=== PATIENT | male | born 1935 | race Caucasian/White ===

== ENCOUNTER 2017-03-23 14:50 | Emergency (ER) | payer OTHER, MEDICAID ==
[~2017-03-23] VITALS: Ht 167.6 cm; Wt 69.4 kg
[2017-03-23 14:59] VITALS: BP_SYST 114
[2017-03-23 15:54] LABS: BASOPHILS # (AUTO) 0.1 K/uL (0.0-0.2); BASOPHILS % (AUTO) 0.6 % (0.0-2.0); EOSINOPHILS % (AUTO) 0.5 % (0.0-4.0); HEMATOCRIT 40.6 % (36-54); HEMOGLOBIN 13.5 g/dL (14.0-18.0); LYMPHOCYTES # (AUTO) 1.7 K/uL (1.0-5.5); LYMPHOCYTES % (AUTO) 19.7 % (20.5-51.5); MEAN CORPUSCULAR HEMOGLOBIN 33 pg (27-31); MEAN CORPUSCULAR HGB CONC 33 % (32-36); MEAN CORPUSCULAR VOLUME 100 fL (79.0-98.0); MONOCYTES # (AUTO) 0.6 K/uL (0.0-1.0); MONOCYTES % (AUTO) 6.6 % (1.7-9.3); NEUTROPHILS % (AUTO) 72.6 % (40.0-70.0); RED BLOOD CELL COUNT(AUTO) 4.08 MIL/uL (4.2-6.2); RED CELL DISTRIBUTION WIDTH 14.6 % (9.0-15.0); WHITE BLOOD COUNT (AUTO) 8.4 K/uL (4.8-10.8)
--- NOTE | 2017-03-23 15:58 | NUR ---
Ambulatory to hallway bed 1
[2017-03-23 16:05] LABS: PLATELET COUNT (AUTO) 118 K/uL (130-430)
[2017-03-23 16:08] LABS: PROTHROMBIN TIME 9.7 SECS (9.5-12.5)
--- NOTE | 2017-03-23 16:10 | NUR ---
Pt complains of left lower back pain for the past couple weeks, pt states has increased for the past couple days. Pt is able to ambulate but is hunched over and needs assistance. No other injuries/complaints per pt or noted.
--- NOTE | 2017-03-23 16:15 | NUR ---
ER at bedside examining patient.
[2017-03-23] MEDS: KETOROLAC TROMETHAMINE 60 MG/2 ML VIAL IM ONE (16:20)
[2017-03-23] MEDS: ACETAMINOPHEN 325 MG TABLET PO ONE (16:20)
--- NOTE | 2017-03-23 16:20 | NUR ---
Pain medication was given to pt, tolerated it well. No noted adverse reaction, will continue to monitor.
[2017-03-23 16:21] LABS: ANION GAP 5 (5-15); CALCIUM 9.5 mg/dL (8.4-11.0); CHLORIDE 100 mmol/L (98-107); CREATININE 5.51 mg/dL (0.55-1.30); GLUCOSE 112 mg/dL (70-99); POTASSIUM 3.8 mmol/L (3.5-5.1); SODIUM SERUM 139 mmol/L (136-145); UREA NITROGEN, BLOOD 25 mg/dL (8-21)
[2017-03-23 16:25] LABS: ALBUMIN 3.5 g/dL (3.4-4.8); ASPARTATE AMINOTRANSFERASE 17 U/L (10-37); LIPASE 138 U/L (73-393); TOTAL BILIRUBIN 0.4 mg/dL (0.0-1.0)
[2017-03-23 16:40] LABS: ALANINE AMINOTRANSFERASE 24 U/L (12-78)
[2017-03-23 17:12] VITALS: BP_SYST 110
--- NOTE | 2017-03-23 17:12 | NUR ---
Patient given written and verbal discharge instructions and verbalizes understanding. ER MD discussed with patient the results and treatment provided. Patient in stable condition. ID arm band removed. IV catheter removed intact and dressing applied, no active bleeding. Rx of cipro, tylenol and flagyl given. Patient educated on pain management and to follow up with PMD. Pain Scale 2. Opportunity for questions provided and answered.
== END 2017-03-23 17:12 | disposition home or self-care (01) ==
LOC: SED 14:50
DX: K57.92 Diverticulitis of intestine, part unspecified, without perforation or abscess without bleeding (principal); N40.0 Benign prostatic hyperplasia without lower urinary tract symptoms; I12.0 Hypertensive chronic kidney disease with stage 5 chronic kidney disease or end stage renal disease; N18.6 End stage renal disease; Z99.2 Dependence on renal dialysis; Z87.442 Personal history of urinary calculi
CPT/HCPCS: 36415; 74176; 80053; 83690; 85025; 85610; 85730; 96372; 99285; J1885

== ENCOUNTER 2017-04-05 06:41 | Inpatient (IN) | payer OTHER, MEDICAID ==
[~2017-04-05] VITALS: Ht 162.6 cm; Wt 68.9 kg
[2017-04-05 06:45] VITALS: BP_SYST 146
[2017-04-05 08:02] LABS: BASOPHILS % (AUTO) 0.1 % (0.0-2.0); EOSINOPHILS % (AUTO) 0.5 % (0.0-4.0); HEMATOCRIT 37.3 % (36-54); LYMPHOCYTES # (AUTO) 1.8 K/uL (1.0-5.5); LYMPHOCYTES % (AUTO) 26.9 % (20.5-51.5); MEAN CORPUSCULAR HEMOGLOBIN 32 pg (27-31); MEAN CORPUSCULAR HGB CONC 32 % (32-36); MEAN CORPUSCULAR VOLUME 100 fL (79.0-98.0); MONOCYTES # (AUTO) 0.4 K/uL (0.0-1.0); MONOCYTES % (AUTO) 6.9 % (1.7-9.3); NEUTROPHILS # (AUTO) 4.3 K/uL (1.8-7.7); NEUTROPHILS % (AUTO) 65.6 % (40.0-70.0); PLATELET COUNT (AUTO) 140 K/uL (130-430); RED BLOOD CELL COUNT(AUTO) 3.75 MIL/uL (4.2-6.2); RED CELL DISTRIBUTION WIDTH 14.5 % (9.0-15.0); WHITE BLOOD COUNT (AUTO) 6.5 K/uL (4.8-10.8)
[2017-04-05 08:18] LABS: PROTHROMBIN TIME 9.8 SECS (9.5-12.5)
[2017-04-05 08:20] LABS: ALANINE AMINOTRANSFERASE 29 U/L (12-78); ALBUMIN 2.8 g/dL (3.4-4.8); ANION GAP 8 (5-15); ASPARTATE AMINOTRANSFERASE 25 U/L (10-37); CALCIUM 8.8 mg/dL (8.4-11.0); CHLORIDE 100 mmol/L (98-107); CREATININE 6.62 mg/dL (0.55-1.30); GLUCOSE 77 mg/dL (70-99); POTASSIUM 4.4 mmol/L (3.5-5.1); SODIUM SERUM 139 mmol/L (136-145); TOTAL BILIRUBIN 0.6 mg/dL (0.0-1.0); UREA NITROGEN, BLOOD 41 mg/dL (8-21)
[2017-04-05] MEDS ORDERED: OXYC5TAB84 PO (09:30)
[2017-04-05] MEDS ORDERED: NIFE60TA18 PO (09:30)
[2017-04-05] MEDS ORDERED: SEVE800T10 PO (09:30)
[2017-04-05 10:34] VITALS: BP_SYST 134
[2017-04-05] MEDS ORDERED: IRON (10:55)
[2017-04-05] MEDS ORDERED: PRED5TAB PO (10:55)
[2017-04-05] MEDS ORDERED: PRO40 PO (10:55)
[2017-04-05] MEDS ORDERED: MORPHINE 2 MG/ML INJ. SYRINGE ONE (15:43)
[2017-04-05 16:17] VITALS: BP_SYST 113
[2017-04-05] MEDS ORDERED: PANTOPRAZOLE SODIUM 40 MG/VIAL (PROTONIX) IVP ONE (17:00)
[2017-04-05 17:07] LABS: HEMATOCRIT 36.5 % (36-54); HEMOGLOBIN 12.4 g/dL (14.0-18.0)
[2017-04-05] MEDS ORDERED: GOLYTELY / COLYTE SOLUTION 4 LITERS PO ONE (18:00)
[2017-04-05] MEDS ORDERED: BISACODYL 5 MG TABLET.DR (DULCOLAX) PO ONE (18:00)
[2017-04-05 20:00] VITALS: BP_SYST 112
[2017-04-05] MEDS: PANTOPRAZOLE SODIUM 40 MG/VIAL (PROTONIX) IVP SCH (20:56)
[2017-04-05 23:10] LABS: HEMATOCRIT 39.7 % (36-54); HEMOGLOBIN 13.4 g/dL (14.0-18.0)
[2017-04-06 00:02] VITALS: BP_SYST 100
[2017-04-06 06:17] LABS: HEMATOCRIT 37.6 % (36-54); HEMOGLOBIN 12.6 g/dL (14.0-18.0)
[2017-04-06 08:01] VITALS: BP_SYST 129
[2017-04-06] MEDS ORDERED: SIMETHICONE 40 MG/0.6 ML ML ONE (08:09)
[2017-04-06] MEDS ORDERED: MEPERIDINE HCL/PF 100 MG/ML AMP ONE (08:09)
[2017-04-06] MEDS ORDERED: MIDAZOLAM HCL 5 MG/5 ML VIAL ONE (08:10)
[2017-04-06] MEDS: PANTOPRAZOLE SODIUM 40 MG/VIAL (PROTONIX) IVP SCH ×3 (09:00→20:24)
[2017-04-06] MEDS ORDERED: HYDROCORTISONE ACETATE 1 SUPP (ANUSOL HC) RC ONE (09:45)
[2017-04-06 10:36] LABS: HEMOGLOBIN 13.7 g/dL (14.0-18.0)
[2017-04-06 10:37] LABS: HEMATOCRIT 41.1 % (36-54)
[2017-04-06 12:15] VITALS: BP_SYST 114
[2017-04-06 17:03] VITALS: BP_SYST 126
[2017-04-06 20:00] VITALS: BP_SYST 100
[2017-04-06] MEDS ORDERED: HYDROCORTISONE ACETATE 1 SUPP (ANUSOL HC) RC SCH (21:00)
[2017-04-06 21:02] VITALS: BP_SYST 100
[2017-04-06] MEDS ORDERED: PRO40 PO (21:14)
== END 2017-04-06 21:30 | disposition home or self-care (01) | DRG 377 ==
LOC: SED 06:41 → STU 09:47 → SMU 04-06 14:40
PROVIDERS: ADMIT Internal Medicine Hospice and Palliative Medicine; ATTEND Internal Medicine Hospice and Palliative Medicine
PROC: 0DB68ZX Excision of Stomach, Via Natural or Artificial Opening Endoscopic, Diagnostic (ICD-10-PCS; 2017-04-06)
PROC: 5A1D70Z Performance of Urinary Filtration, Intermittent, Less than 6 Hours Per Day (ICD-10-PCS; 2017-04-06)
PROC: 0DBK8ZZ Excision of Ascending Colon, Via Natural or Artificial Opening Endoscopic (ICD-10-PCS; principal; 2017-04-06 08:30)
PROC: 0DB98ZX Excision of Duodenum, Via Natural or Artificial Opening Endoscopic, Diagnostic (ICD-10-PCS; 2017-04-06 08:30)
DX: K62.5 Hemorrhage of anus and rectum (principal); N18.6 End stage renal disease; I12.0 Hypertensive chronic kidney disease with stage 5 chronic kidney disease or end stage renal disease; K64.9 Unspecified hemorrhoids; K29.71 Gastritis, unspecified, with bleeding; D12.2 Benign neoplasm of ascending colon; K63.5 Polyp of colon; Z99.2 Dependence on renal dialysis; K29.80 Duodenitis without bleeding; K57.90 Diverticulosis of intestine, part unspecified, without perforation or abscess without bleeding
CPT/HCPCS: 36415; 43239; 45380; 80053; 82272; 85018-TC; 85025; 85610-TC; 85730-TC; 86886; 86900; 86901; 87081; 88305; 88312; 88313; 90935; 93005; 99285; C9113; J2175; J2250; J2270; J7030

== ENCOUNTER 2017-08-15 16:56 | Emergency (ER) | payer OTHER, MEDICAID ==
[~2017-08-15] VITALS: Ht 167.6 cm; Wt 67.1 kg
[2017-08-15 16:56] VITALS: BP_SYST 85
[~2017-08-15 16:56] MED LIST: IRON; OXYC5TAB84 PO; PRED5TAB PO; PRO40 PO; SEVE800T10 PO
--- NOTE | 2017-08-15 16:58 | NUR ---
BROUGHT BACK TO BED #8 AND TRIAGED.REPORT GIVEN TO ROBYN
--- NOTE | 2017-08-15 17:05 | NUR ---
Pt presents to ER c/o productive cough x 3 days. Pt states that he recently saw his PMD who prescribed him antibiotics; pt states that he has taken 3 doses of antibiotics but is not feeling better. Pt reports mucus is clear, denies N/V/D/FEVER/SOB/CP. Pt in no acute respiratory distress, AOX4, Vietnamese speaking only, at bedside.
--- NOTE | 2017-08-15 17:10 | NUR ---
ER at bedside examining patient.
[2017-08-15 17:38] LABS: BASOPHILS % (AUTO) 0.5 % (0.0-2.0); EOSINOPHILS % (AUTO) 0.3 % (0.0-4.0); HEMATOCRIT 35.3 % (36-54); HEMOGLOBIN 11.7 g/dL (14.0-18.0); LYMPHOCYTES # (AUTO) 0.9 K/uL (1.0-5.5); LYMPHOCYTES % (AUTO) 11.4 % (20.5-51.5); MEAN CORPUSCULAR HEMOGLOBIN 33 pg (27-31); MEAN CORPUSCULAR HGB CONC 33 % (32-36); MEAN CORPUSCULAR VOLUME 101 fL (79.0-98.0); MONOCYTES # (AUTO) 0.4 K/uL (0.0-1.0); MONOCYTES % (AUTO) 5.1 % (1.7-9.3); NEUTROPHILS # (AUTO) 6.6 K/uL (1.8-7.7); NEUTROPHILS % (AUTO) 82.7 % (40.0-70.0); PLATELET COUNT (AUTO) 129 K/uL (130-430); RED BLOOD CELL COUNT(AUTO) 3.48 MIL/uL (4.2-6.2); RED CELL DISTRIBUTION WIDTH 14.3 % (9.0-15.0); WHITE BLOOD COUNT (AUTO) 7.9 K/uL (4.8-10.8)
[2017-08-15 17:46] LABS: CALCIUM 8.5 mg/dL (8.4-11.0); CHLORIDE 100 mmol/L (98-107); CREATININE 4.56 mg/dL (0.55-1.30); GLUCOSE 102 mg/dL (70-99); SODIUM SERUM 139 mmol/L (136-145); UREA NITROGEN, BLOOD 27 mg/dL (8-21)
[2017-08-15 18:04] LABS: INR 0.9 (0.80-1.20); PROTHROMBIN TIME 9.5 SECS (9.5-12.5)
[2017-08-15 18:18] LABS: ALANINE AMINOTRANSFERASE 33 U/L (12-78); ASPARTATE AMINOTRANSFERASE 25 U/L (10-37); TOTAL BILIRUBIN 0.6 mg/dL (0.0-1.0)
[2017-08-15 18:19] LABS: ALBUMIN 3.2 g/dL (3.4-4.8); ANION GAP < 3 (5-15)
--- NOTE | 2017-08-15 18:20 | NUR ---
Pt resting comfortably on gurney, no signs of acute distress noted, will continue to monitor.
--- NOTE | 2017-08-15 19:10 | NUR ---
Patient to ER C/O of cough and low grade fever. On gurney, calm, VS wnl. No signs of acute distress.
[2017-08-15] MEDS ORDERED: LEVOFLOXACIN 500 MG TABLET PO ONE (19:30)
[2017-08-15 20:03] VITALS: BP_SYST 137
--- NOTE | 2017-08-15 20:03 | NUR ---
Patient given written and verbal discharge instructions and verbalizes understanding. ER MD Gomes discussed with patient the results and treatment provided. Patient in stable condition. ID arm band removed. Rx of levaquin & phenergan given. Patient educated on pain management and to follow up with PMD. Pain Scale 0/10. Opportunity for questions provided and answered. Medication side effect fact sheet provided.
== END 2017-08-15 20:03 | disposition home or self-care (01) ==
LOC: SED 16:56
DX: R05 Cough (principal); R79.1 Abnormal coagulation profile
CPT/HCPCS: 36415; 71045; 80053; 83605; 83880; 84484; 85025; 85610-TC; 85730-TC; 93005; 99285

== ENCOUNTER 2018-03-02 19:18 | Inpatient (IN) | payer OTHER, MEDICAID ==
[~2018-03-02] VITALS: Ht 162.6 cm; Wt 65.8 kg
[~2018-03-02 19:18] MED LIST changes: +OXYC-580 PO; -OXYC5TAB84 PO; +REN800 PO; -SEVE800T10 PO
[2018-03-02 19:39] VITALS: BP_SYST 156
[2018-03-02] MEDS ORDERED: NACL 0.9% 1,000 ML IV ONE (20:00)
[2018-03-02] MEDS ORDERED: MECLIZINE HCL 25 MG TABLET (ANITVERT) PO ONE (20:30)
[2018-03-02 20:34] LABS: BASOPHILS % (AUTO) 0.1 % (0.0-2.0); EOSINOPHILS % (AUTO) 0.2 % (0.0-4.0); HEMATOCRIT 36.5 % (36-54); HEMOGLOBIN 12.1 g/dL (14.0-18.0); LYMPHOCYTES % (AUTO) 15.7 % (20.5-51.5); MEAN CORPUSCULAR HEMOGLOBIN 34 pg (27-31); MEAN CORPUSCULAR HGB CONC 33 % (32-36); MEAN CORPUSCULAR VOLUME 101 fL (79.0-98.0); MONOCYTES # (AUTO) 0.3 K/uL (0.0-1.0); MONOCYTES % (AUTO) 5.1 % (1.7-9.3); NEUTROPHILS # (AUTO) 5.2 K/uL (1.8-7.7); NEUTROPHILS % (AUTO) 78.9 % (40.0-70.0); RED BLOOD CELL COUNT(AUTO) 3.63 MIL/uL (4.2-6.2); RED CELL DISTRIBUTION WIDTH 13.3 % (9.0-15.0); WHITE BLOOD COUNT (AUTO) 6.5 K/uL (4.8-10.8)
[2018-03-02 20:37] LABS: PLATELET COUNT (AUTO) 101 K/uL (130-430)
[2018-03-02 20:48] LABS: ANION GAP 10 (5-15); CALCIUM 9.2 mg/dL (8.4-11.0); CHLORIDE 97 mmol/L (98-107); CREATININE 6.86 mg/dL (0.55-1.30); GLUCOSE 79 mg/dL (70-99); POTASSIUM 5.7 mmol/L (3.5-5.1); SODIUM SERUM 135 mmol/L (136-145); UREA NITROGEN, BLOOD 42 mg/dL (8-21)
[2018-03-02 20:51] LABS: PROTHROMBIN TIME 9.9 SECS (9.5-12.5)
[2018-03-02 20:53] LABS: ALANINE AMINOTRANSFERASE 30 U/L (12-78); ALBUMIN 3.2 g/dL (3.4-4.8); ASPARTATE AMINOTRANSFERASE 29 U/L (10-37); TOTAL BILIRUBIN 0.5 mg/dL (0.0-1.0)
[2018-03-02] MEDS ORDERED: INSULIN NPH/REGULAR 70-30, 100 UNITS/ML, 10 ML VIAL SUBCUT ONE (21:30)
[2018-03-02] MEDS ORDERED: DEXTROSE 50% JECT 50 ML DISP.SYRIN IVP ONE (21:30)
[2018-03-02] MEDS ORDERED: SODIUM POLYSTYRENE SULFONATE 15 GM/60 ML UDBTL PO ONE (21:30)
[2018-03-02] MEDS ORDERED: CINA60TA PO (21:54)
[2018-03-02] MEDS ORDERED: REN800 PO (21:54)
[2018-03-03] VITALS (9 sets, daily range): BP systolic 118–132
[2018-03-03] MEDS ORDERED: ONDANSETRON HCL 4 MG/2 ML VIAL IVP PRN
[2018-03-03] MEDS ORDERED: oxyCODONE HCL 5 MG TABLET PO PRN
[2018-03-03 07:21] LABS: LYMPHOCYTES # (AUTO) 1.3 K/uL (1.0-5.5); MEAN CORPUSCULAR HGB CONC 34 % (32-36); MEAN CORPUSCULAR VOLUME 101 fL (79.0-98.0); WHITE BLOOD COUNT (AUTO) 5.7 K/uL (4.8-10.8)
[2018-03-03 07:28] LABS: ANION GAP 8 (5-15); CALCIUM 8.5 mg/dL (8.4-11.0); CHLORIDE 102 mmol/L (98-107); CREATININE 7.29 mg/dL (0.55-1.30); GLUCOSE 96 mg/dL (70-99); POTASSIUM 4.4 mmol/L (3.5-5.1); SODIUM SERUM 140 mmol/L (136-145); UREA NITROGEN, BLOOD 47 mg/dL (8-21)
[2018-03-03 07:33] LABS: RED BLOOD CELL COUNT(AUTO) 3.09 MIL/uL (4.2-6.2)
[2018-03-03 07:34] LABS: EOSINOPHILS % (AUTO) 0.5 % (0.0-4.0); HEMATOCRIT 31.2 % (36-54); LYMPHOCYTES % (AUTO) 23.3 % (20.5-51.5); MEAN CORPUSCULAR HEMOGLOBIN 35 pg (27-31); MONOCYTES # (AUTO) 0.6 K/uL (0.0-1.0); MONOCYTES % (AUTO) 9.7 % (1.7-9.3); NEUTROPHILS # (AUTO) 3.8 K/uL (1.8-7.7); NEUTROPHILS % (AUTO) 66.5 % (40.0-70.0); RED CELL DISTRIBUTION WIDTH 13.2 % (9.0-15.0)
[2018-03-03 07:35] LABS: HEMOGLOBIN 10.7 g/dL (14.0-18.0)
[2018-03-03 07:46] LABS: ALANINE AMINOTRANSFERASE 22 U/L (12-78); ALBUMIN 2.4 g/dL (3.4-4.8); ASPARTATE AMINOTRANSFERASE 21 U/L (10-37); TOTAL BILIRUBIN 0.4 mg/dL (0.0-1.0)
[2018-03-03] MEDS: PANTOPRAZOLE SODIUM 40 MG TAB PO SCH ×2 (08:11→20:53)
[2018-03-03] MEDS: PREDNISONE 5 MG TABLET PO SCH (08:11)
[2018-03-03] MEDS: SEVELAMER HCL 800 MG TABLET PO SCH (08:11)
[2018-03-03] MEDS: CINACALCET HCL 30 MG TABLET PO SCH (08:11)
[2018-03-03] MEDS ORDERED: DEXTROSE 50% JECT 50 ML DISP.SYRIN IVP PRN (09:45)
[2018-03-03 09:54] LABS: PLATELET COUNT (AUTO) 82 K/uL (130-430)
[2018-03-03] MEDS: INSULIN REGULAR, HUMAN 100 UNITS/ML, 10 ML VIAL (novoLIN R) SUBCUT PRN ×2 (11:28→17:12)
[2018-03-04 01:41] VITALS: BP_SYST 131
[2018-03-04 04:17] VITALS: BP_SYST 140
[2018-03-04] MEDS ORDERED: ACETAMINOPHEN 325 MG TABLET PO ONE (04:45)
[2018-03-04] MEDS: INSULIN REGULAR, HUMAN 100 UNITS/ML, 10 ML VIAL (novoLIN R) SUBCUT PRN (05:38)
[2018-03-04] MEDS: CINACALCET HCL 30 MG TABLET PO SCH (08:35)
[2018-03-04] MEDS: PREDNISONE 5 MG TABLET PO SCH (08:35)
[2018-03-04] MEDS: PANTOPRAZOLE SODIUM 40 MG TAB PO SCH (08:35)
[2018-03-04] MEDS: SEVELAMER HCL 800 MG TABLET PO SCH (08:35)
[2018-03-04 08:39] VITALS: BP_SYST 137
[2018-03-04 11:29] VITALS: BP_SYST 132
[2018-03-04 12:23] VITALS: BP_SYST 132
== END 2018-03-04 13:45 | disposition home or self-care (01) | DRG 640 ==
LOC: SED 19:18 → STU 21:50 → SMU 03-03 09:23 → STU 03-03 09:43
PROVIDERS: ADMIT Internal Medicine; ATTEND Internal Medicine
PROC: 5A1D70Z Performance of Urinary Filtration, Intermittent, Less than 6 Hours Per Day (ICD-10-PCS; principal; 2018-03-04)
DX: E87.5 Hyperkalemia (principal); N18.6 End stage renal disease; I12.0 Hypertensive chronic kidney disease with stage 5 chronic kidney disease or end stage renal disease; D64.9 Anemia, unspecified; E86.9 Volume depletion, unspecified; N40.0 Benign prostatic hyperplasia without lower urinary tract symptoms; E11.22 Type 2 diabetes mellitus with diabetic chronic kidney disease; Z87.442 Personal history of urinary calculi; Z99.2 Dependence on renal dialysis; Z82.49 Family history of ischemic heart disease and other diseases of the circulatory system
CPT/HCPCS: 36415; 70450-TC; 71045; 80053; 82962; 83605; 83880; 84443-TC; 84484; 85025; 85610-TC; 85730-TC; 87040-TC; 87081; 90935; 93005; 93306; 94760; 96361; 96372; 96374; 99285; G0378; J1815; J7512; J8597

== ENCOUNTER 2018-06-01 14:06 | Emergency (ER) | payer OTHER, MEDICAID ==
[~2018-06-01] VITALS: Ht 162.6 cm; Wt 67.1 kg
[~2018-06-01 14:06] MED LIST changes: +CINA60TA PO
[2018-06-01 14:17] VITALS: BP_SYST 161
[2018-06-01] MEDS ORDERED: DIPH-TET-PERTUS Vaccine 0.5 ML VIAL (ADACEL) I.M. ONE (16:45)
[2018-06-01 16:50] VITALS: BP_SYST 140
== END 2018-06-01 16:50 | disposition home or self-care (01) ==
LOC: SED 14:06
DX: S50.812A Abrasion of left forearm, initial encounter (principal); S50.811A Abrasion of right forearm, initial encounter; I12.9 Hypertensive chronic kidney disease with stage 1 through stage 4 chronic kidney disease, or unspecified chronic kidney disease; N18.9 Chronic kidney disease, unspecified; N40.0 Benign prostatic hyperplasia without lower urinary tract symptoms; Z99.2 Dependence on renal dialysis; Z87.442 Personal history of urinary calculi; Z79.899 Other long term (current) drug therapy; W19.XXXA Unspecified fall, initial encounter; Y93.89 Activity, other specified; Y92.89 Other specified places as the place of occurrence of the external cause; Y99.8 Other external cause status
CPT/HCPCS: 90715; 99283

== ENCOUNTER 2018-07-03 15:01 | Inpatient (IN) | payer OTHER, MEDICAID ==
[~2018-07-03] VITALS: Ht 162.6 cm; Wt 73.9 kg
[2018-07-03 15:01] VITALS: BP_SYST 151
[2018-07-03] MEDS ORDERED: NACL 0.9% 1,000 ML IV ONE (15:30)
[2018-07-03 15:56] LABS: BASOPHILS % (AUTO) 0.5 % (0.0-2.0); EOSINOPHILS % (AUTO) 0.2 % (0.0-4.0); HEMATOCRIT 40.5 % (36-54); HEMOGLOBIN 13.5 g/dL (14.0-18.0); LYMPHOCYTES # (AUTO) 0.6 K/uL (1.0-5.5); LYMPHOCYTES % (AUTO) 7.3 % (20.5-51.5); MEAN CORPUSCULAR HEMOGLOBIN 33 pg (27-31); MEAN CORPUSCULAR HGB CONC 33 % (32-36); MEAN CORPUSCULAR VOLUME 100 fL (79.0-98.0); MONOCYTES # (AUTO) 0.4 K/uL (0.0-1.0); NEUTROPHILS # (AUTO) 7.5 K/uL (1.8-7.7); PLATELET COUNT (AUTO) 112 K/uL (130-430); RED BLOOD CELL COUNT(AUTO) 4.07 MIL/uL (4.2-6.2); RED CELL DISTRIBUTION WIDTH 13.8 % (9.0-15.0); WHITE BLOOD COUNT (AUTO) 8.6 K/uL (4.8-10.8)
[2018-07-03 16:13] LABS: ANION GAP 5 (5-15); CALCIUM 9.3 mg/dL (8.4-11.0); CHLORIDE 99 mmol/L (98-107); CREATININE 4.68 mg/dL (0.55-1.30); GLUCOSE 79 mg/dL (70-99); POTASSIUM 3.9 mmol/L (3.5-5.1); SODIUM SERUM 137 mmol/L (136-145); UREA NITROGEN, BLOOD 35 mg/dL (8-21)
[2018-07-03 16:14] LABS: INR 0.9 (0.80-1.20); PROTHROMBIN TIME 9.6 SECS (9.5-12.5)
[2018-07-03 16:18] LABS: ALANINE AMINOTRANSFERASE 15 U/L (12-78); ALBUMIN 3.2 g/dL (3.4-4.8); ASPARTATE AMINOTRANSFERASE 13 U/L (10-37); TOTAL BILIRUBIN 0.6 mg/dL (0.0-1.0)
[2018-07-03] MEDS ORDERED: CLINDAMYCIN 900 mg/50mL D5W 50 ML IV ONE (16:30)
[2018-07-03] MEDS ORDERED: VANCOMYCIN HCL 1,000 MG in NS 250 ML IV ONE (18:00)
[2018-07-03 18:08] VITALS: BP_SYST 102
[2018-07-03 19:00] VITALS: BP_SYST 108
[2018-07-03 20:00] VITALS: BP_SYST 108
[2018-07-03] MEDS ORDERED: VANCOMYCIN HCL 1000 MG/VIAL IV ONE (20:19)
[2018-07-03] MEDS ORDERED: ACETAMINOPHEN 325 MG TABLET PO PRN ×2 (22:00→23:30)
[2018-07-03] MEDS: CINACALCET HCL 30 MG TABLET PO SCH (22:39)
[2018-07-03] MEDS: SEVELAMER HCL 800 MG TABLET PO SCH (22:39)
[2018-07-03] MEDS: PREDNISONE 5 MG TABLET PO SCH (22:39)
[2018-07-03] MEDS ORDERED: COMMUNICATION ORDER XX ONE (22:45)
[2018-07-03] MEDS: ZOLPIDEM TARTRATE 5 MG TABLET PO PRN (22:54)
[2018-07-03] MEDS ORDERED: PIPERACILLIN/TAZOBACTAM 2.25 GM VIAL IV ONE (23:13)
[2018-07-03] MEDS ORDERED: oxyCODONE HCL 5 MG TABLET PO PRN (23:15)
[2018-07-03] MEDS ORDERED: PIPERACILLIN/TAZO 3.375/DEX-IS 50 ML IV SCH (23:30)
[2018-07-03] MEDS ORDERED: ONDANSETRON HCL 4 MG/2 ML VIAL IVP PRN (23:30)
[2018-07-03] MEDS ORDERED: ALBUTEROL SULFATE 0.083% 2.5 MG/3 ML VIAL.NEB INH PRN (23:30)
[2018-07-03] MEDS: oxyCODONE HCL 5 MG TABLET PO PRN (23:52)
[2018-07-03] MEDS: ZOSYN (PIPERACILLIN/TAZO) 2.25 GM in DEX-ISO (50ml) IV SCH (23:57)
[2018-07-04 00:51] VITALS: BP_SYST 100
[2018-07-04] MEDS: ZOSYN (PIPERACILLIN/TAZO) 2.25 GM in DEX-ISO (50ml) IV SCH ×3 (05:17→21:21)
[2018-07-04 06:31] LABS: BASOPHILS % (AUTO) 0.2 % (0.0-2.0); HEMATOCRIT 35.4 % (36-54); HEMOGLOBIN 11.9 g/dL (14.0-18.0); LYMPHOCYTES # (AUTO) 1.3 K/uL (1.0-5.5); LYMPHOCYTES % (AUTO) 13.3 % (20.5-51.5); MEAN CORPUSCULAR HEMOGLOBIN 33 pg (27-31); MEAN CORPUSCULAR HGB CONC 34 % (32-36); MEAN CORPUSCULAR VOLUME 99 fL (79.0-98.0); MONOCYTES # (AUTO) 0.7 K/uL (0.0-1.0); MONOCYTES % (AUTO) 6.6 % (1.7-9.3); NEUTROPHILS # (AUTO) 7.9 K/uL (1.8-7.7); NEUTROPHILS % (AUTO) 79.9 % (40.0-70.0); RED BLOOD CELL COUNT(AUTO) 3.57 MIL/uL (4.2-6.2); RED CELL DISTRIBUTION WIDTH 14.2 % (9.0-15.0); WHITE BLOOD COUNT (AUTO) 9.9 K/uL (4.8-10.8)
[2018-07-04 07:00] LABS: ALANINE AMINOTRANSFERASE 21 U/L (12-78); ALBUMIN 2.3 g/dL (3.4-4.8); ANION GAP 4 (5-15); ASPARTATE AMINOTRANSFERASE 21 U/L (10-37); CALCIUM 8.4 mg/dL (8.4-11.0); CHLORIDE 100 mmol/L (98-107); CREATININE 5.89 mg/dL (0.55-1.30); GLUCOSE 100 mg/dL (70-99); POTASSIUM 5.3 mmol/L (3.5-5.1); SODIUM SERUM 131 mmol/L (136-145); TOTAL BILIRUBIN 0.6 mg/dL (0.0-1.0); UREA NITROGEN, BLOOD 45 mg/dL (8-21)
[2018-07-04] MEDS ORDERED: PANTOPRAZOLE SODIUM 40 MG TAB PO SCH (07:30)
[2018-07-04] MEDS: SEVELAMER HCL 800 MG TABLET PO SCH ×3 (08:00→08:47)
[2018-07-04 08:34] VITALS: BP_SYST 139
[2018-07-04] MEDS: PANTOPRAZOLE SODIUM 40 MG TAB PO SCH ×2 (08:37→21:21)
[2018-07-04] MEDS: PREDNISONE 5 MG TABLET PO SCH ×2 (08:38)
[2018-07-04] MEDS: CINACALCET HCL 30 MG TABLET PO SCH ×2 (08:39→08:40)
[2018-07-04 10:09] LABS: PLATELET COUNT (AUTO) 89 K/uL (130-430)
[2018-07-04] MEDS ORDERED: VANCOMYCIN HCL 750 MG/NS 250 ML IV ONE (11:00)
[2018-07-04 12:28] VITALS: BP_SYST 149
[2018-07-04 16:38] VITALS: BP_SYST 130
[2018-07-04 20:10] VITALS: BP_SYST 143
[2018-07-04] MEDS: oxyCODONE HCL 5 MG TABLET PO PRN (21:21)
[2018-07-04] MEDS: ZOLPIDEM TARTRATE 5 MG TABLET PO PRN (21:21)
[2018-07-05 00:27] VITALS: BP_SYST 141
[2018-07-05] MEDS: ZOSYN (PIPERACILLIN/TAZO) 2.25 GM in DEX-ISO (50ml) IV SCH ×2 (05:32→14:00)
[2018-07-05 08:01] VITALS: BP_SYST 140
[2018-07-05] MEDS: PREDNISONE 5 MG TABLET PO SCH ×2 (08:29→08:31)
[2018-07-05] MEDS: SEVELAMER HCL 800 MG TABLET PO SCH ×2 (08:30)
[2018-07-05] MEDS: CINACALCET HCL 30 MG TABLET PO SCH ×2 (08:30→08:31)
[2018-07-05] MEDS: PANTOPRAZOLE SODIUM 40 MG TAB PO SCH (08:30)
[2018-07-05 11:26] VITALS: BP_SYST 122
[2018-07-05 14:17] VITALS: BP_SYST 142
[2018-07-05 15:34] VITALS: BP_SYST 142
== END 2018-07-05 18:18 | disposition home or self-care (01) | DRG 602 ==
LOC: SED 15:01 → SMU 17:19
PROVIDERS: ADMIT Internal Medicine; ATTEND Internal Medicine
PROC: 5A1D70Z Performance of Urinary Filtration, Intermittent, Less than 6 Hours Per Day (ICD-10-PCS; principal; 2018-07-05)
DX: L03.114 Cellulitis of left upper limb (principal); N18.6 End stage renal disease; I12.0 Hypertensive chronic kidney disease with stage 5 chronic kidney disease or end stage renal disease; E46 Unspecified protein-calorie malnutrition; D69.6 Thrombocytopenia, unspecified; N40.0 Benign prostatic hyperplasia without lower urinary tract symptoms; Z82.49 Family history of ischemic heart disease and other diseases of the circulatory system; Z87.442 Personal history of urinary calculi; Z99.2 Dependence on renal dialysis; Z68.28 Body mass index [BMI] 28.0-28.9, adult; Z79.899 Other long term (current) drug therapy
CPT/HCPCS: 36415; 71045; 80053; 80202-TC; 83605; 84484; 85025; 85610-TC; 85730-TC; 87040-TC; 87081; 90935; 93005; 99285; J2543; J3370; J3490; J7030; J7050; J7060; J7512

== ENCOUNTER 2018-11-05 08:21 | Emergency (ER) | payer OTHER, MEDICAID ==
[~2018-11-05] VITALS: Ht 157.5 cm; Wt 63.0 kg
[~2018-11-05 08:21] MED LIST changes: -IRON; +LORA-258 PO; -OXYC-580 PO
[2018-11-05 08:28] VITALS: BP_SYST 154
--- NOTE | 2018-11-05 08:35 | NUR ---
Patient to ER bed 8 to gown for evaluation. Side rails up. Report given to Titi YAP.
--- NOTE | 2018-11-05 08:37 | NUR ---
ER Dr. Torres at bedside examining patient.
--- NOTE | 2018-11-05 08:44 | NUR ---
X-ray at bedside.
--- NOTE | 2018-11-05 08:51 | NUR ---
Patient is awake, alert, and oriented x4. Patient's grand daughter is at bedside. Patient is complaining of dry cough x3 days with subjective fever. Patient denies nausea, vomiting, diarrhea, and dizziness.
[2018-11-05 09:32] VITALS: BP_SYST 154
--- NOTE | 2018-11-05 09:32 | NUR ---
Patient given written and verbal discharge instructions and verbalizes understanding. ER MD discussed with patient the results and treatment provided. Patient in stable condition. ID arm band removed. Rx of milo larry, zithromax z-pack given. Patient educated on pain management and to follow up with PMD. Pain Scale 0/10. Opportunity for questions provided and answered. Medication side effect fact sheet provided.
== END 2018-11-05 09:32 | disposition home or self-care (01) ==
LOC: SED 08:21
DX: J20.9 Acute bronchitis, unspecified (principal); I10 Essential (primary) hypertension; Z79.899 Other long term (current) drug therapy
CPT/HCPCS: 71045; 99283

== ENCOUNTER 2018-12-02 17:20 | Emergency (ER) | payer OTHER, MEDICAID ==
[~2018-12-02] VITALS: Ht 157.5 cm; Wt 73.5 kg
[2018-12-02 17:30] VITALS: BP_SYST 188
[2018-12-02 17:50] LABS: BASOPHILS % (AUTO) 0.1 % (0.0-2.0); HEMOGLOBIN 11.5 g/dL (14.0-18.0); LYMPHOCYTES # (AUTO) 0.9 K/uL (1.0-5.5); LYMPHOCYTES % (AUTO) 11.6 % (20.5-51.5); MEAN CORPUSCULAR HEMOGLOBIN 33 pg (27-31); MEAN CORPUSCULAR HGB CONC 34 % (32-36); MEAN CORPUSCULAR VOLUME 99 fL (79.0-98.0); MONOCYTES # (AUTO) 0.1 K/uL (0.0-1.0); MONOCYTES % (AUTO) 1.3 % (1.7-9.3); NEUTROPHILS # (AUTO) 6.4 K/uL (1.8-7.7); RED BLOOD CELL COUNT(AUTO) 3.43 MIL/uL (4.2-6.2); RED CELL DISTRIBUTION WIDTH 15.3 % (9.0-15.0); WHITE BLOOD COUNT (AUTO) 7.4 K/uL (4.8-10.8)
[2018-12-02 17:59] LABS: ANION GAP 12 (5-15); CALCIUM 7.4 mg/dL (8.4-11.0); CHLORIDE 98 mmol/L (98-107); GLUCOSE 134 mg/dL (70-99); POTASSIUM 3.6 mmol/L (3.5-5.1); SODIUM SERUM 139 mmol/L (136-145); UREA NITROGEN, BLOOD 42 mg/dL (8-21)
--- NOTE | 2018-12-02 17:59 | NUR ---
Patient transported to radiology via , accompanied by grades 7 and 8 visiting teacher.
[2018-12-02] MEDS ORDERED: MORPHINE 4 MG/ML INJ. SYRINGE IVP ONE (18:00)
--- NOTE | 2018-12-02 18:05 | NUR ---
pt arrives from home with c/o abd pain. Pt has also had episodes of diarrhea with consitpation. Pt started peritoneal diaylsis ten daus ago. Pt is AAOx4
--- NOTE | 2018-12-02 18:08 | NUR ---
CORONA Weiss at bedside examining patient.
[2018-12-02 18:10] LABS: ALANINE AMINOTRANSFERASE 40 U/L (12-78); ALBUMIN 2.5 g/dL (3.4-4.8); ASPARTATE AMINOTRANSFERASE 57 U/L (10-37); LIPASE 74 U/L (73-393); TOTAL BILIRUBIN 0.4 mg/dL (0.0-1.0)
--- NOTE | 2018-12-02 18:10 | NUR ---
pt returned from CT scan
[2018-12-02 18:11] LABS: PLATELET COUNT (AUTO) 42 K/uL (130-430)
--- NOTE | 2018-12-02 18:19 | NUR ---
# 22 gauge angiocath placed to RFA. Use of asceptic technique. Opsite placed over site. Blood return noted. Blood for lab drawn from site. Flushed with 10 cc of normal saline. No evidence of infiltration noted. Patient tolerated well.
--- NOTE | 2018-12-02 18:20 | NUR ---
medicated the pt with Morphine 4mg IVP, will reassess
[2018-12-02 18:25] LABS: CREATININE 9.46 mg/dL (0.55-1.30)
--- NOTE | 2018-12-02 19:00 | NUR ---
pt reports feeling better current, pain level is 3/10
[2018-12-02 19:12] VITALS: BP_SYST 188
--- NOTE | 2018-12-02 19:14 | NUR ---
Patient given written and verbal discharge instructions and verbalizes understanding. ER MD discussed with patient the results and treatment provided. Patient in stable condition. ID arm band removed. IV catheter removed intact and dressing applied, no active bleeding. Rx of Bereket Pruett, given. Patient educated on pain management and to follow up with PMD. Pain Scale 3/10 Opportunity for questions provided and answered. Medication side effect fact sheet provided.
== END 2018-12-02 19:12 | disposition home or self-care (01) ==
LOC: SED 17:20
DX: N18.6 End stage renal disease (principal); I10 Essential (primary) hypertension; N40.0 Benign prostatic hyperplasia without lower urinary tract symptoms
CPT/HCPCS: 36415; 71045; 74176; 80053; 83690; 84484; 85025; 93005; 96374; 99284; J2270

== ENCOUNTER 2018-12-05 04:08 | Inpatient (IN) | payer OTHER, MEDICAID ==
[2018-12-05] VITALS (7 sets, daily range): BP systolic 126–170
[~2018-12-05] VITALS: Ht 152.4 cm; Wt 1.8 kg
[2018-12-05 04:44] LABS: BASOPHILS % (AUTO) 0.2 % (0.0-2.0); EOSINOPHILS % (AUTO) 0.1 % (0.0-4.0); HEMOGLOBIN 11.4 g/dL (14.0-18.0); MONOCYTES # (AUTO) 0.5 K/uL (0.0-1.0)
[2018-12-05 04:49] LABS: HEMATOCRIT 33.4 % (36-54); LYMPHOCYTES # (AUTO) 1.4 K/uL (1.0-5.5); LYMPHOCYTES % (AUTO) 15.6 % (20.5-51.5); MEAN CORPUSCULAR HEMOGLOBIN 34 pg (27-31); MEAN CORPUSCULAR HGB CONC 34 % (32-36); MEAN CORPUSCULAR VOLUME 98 fL (79.0-98.0); MONOCYTES % (AUTO) 5.7 % (1.7-9.3); NEUTROPHILS # (AUTO) 6.8 K/uL (1.8-7.7); NEUTROPHILS % (AUTO) 78.4 % (40.0-70.0); RED BLOOD CELL COUNT(AUTO) 3.39 MIL/uL (4.2-6.2); RED CELL DISTRIBUTION WIDTH 15.3 % (9.0-15.0); WHITE BLOOD COUNT (AUTO) 8.7 K/uL (4.8-10.8)
[2018-12-05] MEDS ORDERED: ATEN50TA PO (04:53)
[2018-12-05] MEDS ORDERED: AMLO5TAB4 PO (04:53)
[2018-12-05 04:56] LABS: ANION GAP 10 (5-15); CALCIUM 7.1 mg/dL (8.4-11.0); CHLORIDE 99 mmol/L (98-107); GLUCOSE 100 mg/dL (70-99); PLATELET COUNT (AUTO) 56 K/uL (130-430); POTASSIUM 3.3 mmol/L (3.5-5.1); SODIUM SERUM 139 mmol/L (136-145); UREA NITROGEN, BLOOD 43 mg/dL (8-21)
[2018-12-05 05:03] LABS: ALANINE AMINOTRANSFERASE 61 U/L (12-78); ALBUMIN 2.5 g/dL (3.4-4.8); ASPARTATE AMINOTRANSFERASE 48 U/L (10-37); TOTAL BILIRUBIN 0.5 mg/dL (0.0-1.0)
[2018-12-05 05:07] LABS: CREATININE 9.16 mg/dL (0.55-1.30)
[2018-12-05] MEDS ORDERED: FLU VACC TS2019(65UP)/MF59C/PF 45 MCG/0.5 ML SYRINGE I.M. PRN (09:30)
[2018-12-05] MEDS ORDERED: LACTULOSE 20 GM/30 ML UDC PO ONE (16:00)
[2018-12-06 08:00] VITALS: BP_SYST 149
[2018-12-06] MEDS ORDERED: REGADENOSON 0.4 MG/5 ML SYRINGE IVP ONE (09:30)
[2018-12-06 12:35] VITALS: BP_SYST 143
[2018-12-06 16:10] VITALS: BP_SYST 133
[2018-12-06 16:35] VITALS: BP_SYST 133
== END 2018-12-06 17:00 | disposition home or self-care (01) | DRG 205 ==
LOC: SED 04:08 → STU 06:23
PROVIDERS: ADMIT Internal Medicine Hospice and Palliative Medicine; ATTEND Internal Medicine Hospice and Palliative Medicine
PROC: 3E1M39Z Irrigation of Peritoneal Cavity using Dialysate, Percutaneous Approach (ICD-10-PCS; principal; 2018-12-05)
DX: M94.0 Chondrocostal junction syndrome [Tietze] (principal); N18.6 End stage renal disease; I13.2 Hypertensive heart and chronic kidney disease with heart failure and with stage 5 chronic kidney disease, or end stage renal disease; N40.0 Benign prostatic hyperplasia without lower urinary tract symptoms; D69.6 Thrombocytopenia, unspecified; I27.20 Pulmonary hypertension, unspecified; I50.9 Heart failure, unspecified; F41.9 Anxiety disorder, unspecified; K21.9 Gastro-esophageal reflux disease without esophagitis; E21.3 Hyperparathyroidism, unspecified; J44.9 Chronic obstructive pulmonary disease, unspecified; Z99.2 Dependence on renal dialysis; Z79.899 Other long term (current) drug therapy; Z90.49 Acquired absence of other specified parts of digestive tract
CPT/HCPCS: 36415; 71045; 80053; 82550-TC; 83880; 84484; 85025; 87081; 93005; 93017; 99285; A9500; G0378; J2785

== ENCOUNTER 2019-01-30 13:43 | Emergency (ER) | payer OTHER, MEDICAID ==
[~2019-01-30] VITALS: Ht 160 cm; Wt 60.3 kg
[2019-01-30 13:43] VITALS: BP_SYST 153
[~2019-01-30 13:43] MED LIST changes: +AMLO5TAB4 PO; +ATEN50TA PO
--- NOTE | 2019-01-30 13:43 | NUR ---
BROUGHT BACK TO BED #7 VIA WHEELCHAIR, REPORT GIVEN TO LEIGH
--- NOTE | 2019-01-30 13:44 | NUR ---
Patient is awake, alert, and oriented x4. Patient was taking off his sweater at home, fell, and tore the skin off his left forearm. Patient presents with avulsed skin to left arm, denies pain at this time.
--- NOTE | 2019-01-30 13:45 | NUR ---
ER Dr. Garces at bedside examining patient.
[2019-01-30 14:24] VITALS: BP_SYST 153
--- NOTE | 2019-01-30 14:24 | NUR ---
Patient given written and verbal discharge instructions and verbalizes understanding. ER MD discussed with patient the results and treatment provided. Patient in stable condition. ID arm band removed. Rx of keflex given. Patient educated on pain management and to follow up with PMD. Pain Scale 0/10. Opportunity for questions provided and answered. Medication side effect fact sheet provided.
== END 2019-01-30 14:24 | disposition home or self-care (01) ==
LOC: SED 13:43
DX: S51.812A Laceration without foreign body of left forearm, initial encounter (principal); I10 Essential (primary) hypertension; Z88.8 Allergy status to other drugs, medicaments and biological substances; W45.8XXA Other foreign body or object entering through skin, initial encounter; Y93.89 Activity, other specified; Y92.89 Other specified places as the place of occurrence of the external cause; Y99.8 Other external cause status
CPT/HCPCS: 99283